=== PATIENT | male | born 1975 | race Caucasian/White ===

== ENCOUNTER 2017-04-19 22:31 | Emergency (ER) | payer OTHER ==
--- NOTE | 2017-04-19 22:43 | EDM.PDOC ---
ED HPI GENERAL MEDICAL PROBLEM - General Chief Complaint: Cardiovascular Problem Stated Complaint: SHORTNESS OF BREATH Time Seen by Provider: 04/19/17 22:41 - History of Present Illness INITIAL COMMENTS - FREE TEXT/NARRATIVE: HISTORY AND PHYSICAL: History of present illness: Patient 41-year-old white male judgments or palpitations patient denies chest pain shortness breath nausea vomiting or other complaints he denies drug or alcohol abuse denies any known cardiac disease denies thyroid disease. Review of systems: As per history of present illness and below otherwise all systems reviewed and negative. Past medical history: As per history of present illness and as reviewed below otherwise noncontributory. Surgical history: As per history of present illness and as reviewed below otherwise noncontributory. Social history: No reported history of drug or alcohol abuse. Family history: As per history of present illness and as reviewed below otherwise noncontributory. Physical exam: HEENT: Atraumatic, normocephalic, pupils reactive, negative for conjunctival pallor or scleral icterus, mucous membranes moist, throat clear, neck supple, nontender, trachea midline. Lungs: Clear to auscultation, breath sounds equal bilaterally, chest nontender. Heart: S1S2, regular, negative for clicks, rubs, or JVD. Abdomen: Soft, nondistended, nontender. Negative for masses or hepatosplenomegaly. Negative for costovertebral tenderness. Pelvis: Stable nontender. Genitourinary: Deferred. Rectal: Deferred. Extremities: Atraumatic, negative for cords or calf pain. Neurovascular unremarkable. Neuro: Awake, alert, oriented. Cranial nerves II through XII unremarkable. Cerebellum unremarkable. Motor and sensory unremarkable throughout. Exam nonfocal. Diagnostics: CBC CMP troponin PT/INR chest x-ray EKG TSH Therapeutics: IV O2 monitor Impression: #1 palpitations Definitive disposition and diagnosis as appropriate pending reevaluation and review of above. - Related Data Allergies Allergy/AdvReac Type Severity Reaction Status Date / Time No Known Allergies Allergy Verified 04/19/17 22:37 Home Meds: Home Meds . [No Known Home Meds] 08/21/14 [History] Past Medical History - Past Health History Medical/Surgical History: Denies Medical/Surgical History - Infectious Disease History Infectious Disease History: Reports: Chicken Pox Social & Family History - Family History Family Medical History: Noncontributory - Tobacco Use Smoking Status *Q: Never Smoker Second Hand Smoke Exposure: No - Caffeine Use Caffeine Use: Reports: Coffee Caffeine Use Comment: 1cup/day - Alcohol Use Days Per Week of Alcohol Use: 1 Number of Drinks Per Day: 1 Total Drinks Per Week: 1 - Recreational Drug Use Recreational Drug Use: No ED ROS GENERAL - Review of Systems Review Of Systems: ROS reveals no pertinent complaints other than HPI. ED EXAM, GENERAL - Physical Exam Exam: See Below (See dictation) Course - Vital Signs Last Recorded V/S: Last Vital Signs Temp 36.6 C 04/19/17 22:33 Pulse 78 04/19/17 22:33 Resp 19 04/19/17 22:33 BP 133/90 04/19/17 22:33 Pulse Ox 98 04/19/17 22:33 - Orders/Labs/Meds Orders: Active Orders 24 hr Category Date Time Status EKG 12 Lead [EKG Documentation Completion] [RC] STAT Care 04/19/17 22:38 Active Departure - Departure Time of Disposition: 22:42 Disposition: Home, Self-Care 01 Condition: good Clinical Impression: Palpitations Forms: ED Department Discharge Additional Instructions: The following information is given to patients seen in the emergency department who are being discharged to home. This information is to outline your options for follow-up care. We provide all patients seen in our emergency department with a follow-up referral. The need for follow-up, as well as the timing and circumstances, are variable depending upon the specifics of your emergency department visit. If you don't have a primary care physician on staff, we will provide you with a referral. We always advise you to contact your personal physician following an emergency department visit to inform them of the circumstance of the visit and for follow-up with them and/or the need for any referrals to a consulting specialist. The emergency department will also refer you to a specialist when appropriate. This referral assures that you have the opportunity for followup care with a specialist. All of these measure are taken in an effort to provide you with optimal care, which includes your followup. Under all circumstances we always encourage you to contact your private physician who remains a resource for coordinating your care. When calling for followup care, please make the office aware that this follow-up is from your recent emergency room visit. If for any reason you are refused follow-up, please contact the [facility] emergency department at and asked to speak to the emergency department charge nurse. MARY [facility] [address] [place] [id number] Followup primary medical doctor/clinic above as discussed avoid caffeinated beverages energy drinks and histamines or decongestants return as needed as discussed - My Orders Last 24 Hours: My Active Orders 04/19/17 22:38 EKG 12 Lead [EKG Documentation Completion] [RC] STAT - Assessment/Plan Last 24 Hours: My Active Orders 04/19/17 22:38 EKG 12 Lead [EKG Documentation Completion] [RC] STAT
[2017-04-19 23:09] LABS: CHLORIDE,CL 105 mmol/L (98-110); SODIUM,NA 139 mmol/L (136-146)
[2017-04-19 23:56] VITALS: BP 124/80
--- NOTE | 2017-04-21 15:05 | CR ---
EXAM DATE: 04/19/17 PATIENT'S AGE: 41 Patient: MOHAMUD CHESTER Facility: [place], [place] Site . Site : 1975 Study: XRay Chest [id number]/20/2017 10:54:53 PM Ordering Physician: Yoel Lepe Final Report: HISTORY: Palpitations, shortness of breath. TECHNIQUE: One view of the chest. COMPARISON: No prior. FINDINGS: Cardiac size and pulmonary vasculature are within normal limits. There is no acute lung infiltrate or pulmonary edema. No pneumothorax or pleural effusion. IMPRESSION: No acute disease. Dictated by Samir Romero MD @ 04/19/2017 11:09:31 PM Dictated by: Samir Romero MD @ 04/19/2017 23:09:34 (Electronic Signature) Report Signed by Proxy. [facility]
== END 2017-04-19 23:40 | disposition home or self-care (01) ==
LOC: MW.ED 22:31
DX: R00.2 Palpitations (principal)
CPT/HCPCS: 36415; 71010; 71010-26; 80053; 84443; 84484; 85025; 85610; 93005; 99283; 99285-25